=== PATIENT | female | born 1970 | race American Indian/Alaskan Native ===

== ENCOUNTER 2025-05-16 17:12 | Emergency (ER) | payer MEDICAID, SELFPAY ==
--- NOTE | 2025-05-16 17:21 | XR_ITS ---
Examination: CTA carotids with intravenous contrast CTA brain, head with intravenous contrast. 2-D sagittal, coronal reconstructions. 3-D reconstructions. Exam date and time: May 16 2025 cm 2 hours INDICATIONS: Stroke alert, onset left-sided body weakness beginning 1600 hours today, large acute subacute subdural hematoma or peripheral to the left cerebral hemisphere on CT brain scan today CTDI: vol (mGy) 11.2 DLP: (mGycm) 446 Technique: Multiple CTA axial brain, head carotid images post intravenous contrast injection 100 cc, [id number]. 2-D sagittal, coronal reconstructions. 3-D reconstructions, 3-D post processing including vascular maximum intensity projection images. Low dose protocols were performed. One or more of the following dose reduction techniques were used; automated exposure control, adjustment of the mA and/or KV according to patient size, use of iterative reconstruction technique. Findings: No common carotid carotid bifurcation or significant internal carotid artery stenoses Codominant vertebral arteries with no critical stenoses Intracranial vertebral arteries basilar artery and posterior cerebral branches do fill in Juxtasellar supraclinoid portions internal carotid arteries fill, no occlusions of the M1 segments middle cerebral arteries There is decreased filling of the right middle cerebral artery trifurcation vessels, clinical correlation advised Anterior cerebral artery branches do fill Please see the CT brain scan report IMPRESSION: No significant neck arterial stenoses No cerebral large vessel occlusions or thrombus
--- NOTE | 2025-05-16 17:21 | EKG_ITS ---
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
--- NOTE | 2025-05-16 17:22 | EDNOTE_ITS ---
Neuro Symptoms Deficit-RME/HPI General Chief Complaint: Neuro Symptoms/Deficit Stated Complaint: STROKE Time Seen by Provider: 05/16/25 17:20 Arrival date/time: 05/16/25 17:12 Limitations: no limitations RME / HPI RME / HPI Narrative: 55 year old female presents to the ED BIBA from home for evaluation of altered mental status today. Per medics, family on scene reported patient was at her usual state of health today. Noted at 4:00 PM, she was drinking water when she acutely became altered and unresponsive. Per medics on their arrival, patient was GCS of 9 with a respiratory rate of 6. Evidently has history of substance use and was given 2mg Narcan IN and 1mg IV with minimal improvement, repeat GCS 12. However, noted left sided weakness. BS 116. Patient unable to provide any additional history due to acuity and mental status. Related Data Home Medications ?Medication ?Instructions ?Recorded ?Confirmed atropine 1 % eye drops 1 drp ophthalmic (eye) BID 0 03/01/24 03/01/24 moxifloxacin 0.5 % eye drops 1 drp ophthalmic (eye) QI D 03/01/24 03/01/24 prednisolone acetate 1 % eye 1 drp ophthalmic (eye) 6 TIMES 03/01/24 03/01/24 drops,suspension DAILY Previous Rx's ?Medication ?Instructions ?Recorded fluconazole 200 mg tablet 400 mg (2 x 200 mg) PO QDAY #60 03/02/24 tabs Allergies Allergy/AdvReac Type Severity Reaction Status Date / Time No Known Allergies Allergy Verified 05/16/25 18:13 Review of Systems Review of Systems ROS Unobtainable: unobtainable due to mental status ED Exam General Limitations: Present no limitations General appearance: Present other (Expressive aphasia but able to perform commands with right side. ) Head Head exam: Present atraumatic and normocephalic Eye Eye exam: Present PERRL, EOMI and other (Cornea opacified) ENT ENT exam: Present normal exam, normal oropharynx and mucous membranes dry Neck Neck exam: Present normal inspection, full ROM and trachea midline Chest Chest inspection: Present normal inspection and symmetric chest wall rise Respiratory Respiratory exam: Present normal lung sounds bilaterally Cardiovascular Cardiovascular exam: Present regular rate, normal rhythm and normal heart sounds Abdominal Exam Abdominal exam: Present soft and normal bowel sounds Extremities Exam Extremities exam: Present normal inspection Back Exam Back exam: Present normal inspection Neurological Exam Neurological exam: Present other (Expressive aphasia but able to perform commands with right side. Left side upper and lower dense hemiparesis, left facial droop, no drooling. ) Skin Skin exam: Present warm, dry, intact and normal color Course Quality Measures Suspected type of Stroke: Hemmorrhagic Last known well (date): 05/16/25 Last known well (time): 16:00 Tenecteplase given: Reason(s) TPA not given: Symptoms suggest SAH not given stroke Orders Category Date Time Status Bedside Blood Glucose NOW Care 05/16/25 17:21 Completed Carbon Rod Inserter NOW Care 05/16/25 17:21 Completed Continuous Pulse Oximetry NOW Care 05/16/25 17:21 Completed EKG (ED ONLY) *Do not use* NOW Care 05/16/25 17:21 Completed Powers [Urinary Catheter] QS Care 05/16/25 18:16 Completed Insert IV NOW Care 05/16/25 17:21 Completed NIH Stroke Scale now Care 05/16/25 17:21 Completed NPO NOW Care 05/16/25 17:21 Completed Neuro Check Q15MIN Care 05/16/25 17:21 Completed Nurse Swallow Screen x1 Care 05/16/25 17:21 Completed Consult to Neurology / Tele-Neurology Routine Cons 05/16/25 17:21 Active Transfer to another facility [Transfer/Discharge] Stat Discharge 05/16/25 18:[address] angio stroke protocol Stat Exams 05/16/25 17:[address] stroke protocol Stat Exams 05/16/25 17:21 Completed EKG (ED Only) Stat Exams 05/16/25 17:21 Draft Alcohol, Blood Medical Stat Lab 05/16/25 17:30 Completed Arterial Blood Gas Stat Lab 05/16/25 17:52 Completed B-Type Natriuretic Peptide Stat Lab 05/16/25 17:30 Completed CBC Stat Lab 05/16/25 17:30 Completed Comprehensive Metabolic Panel Stat Lab 05/16/25 17:30 Completed Drug Screen,Urine Stat Lab 05/16/25 18:06 Completed Magnesium Stat Lab 05/16/25 17:30 Completed Partial Thromboplastin Time Stat Lab 05/16/25 17:30 Completed Prothrombin Time with INR Stat Lab 05/16/25 17:30 Completed Troponin I Stat Lab 05/16/25 17:30 Completed Urinalysis Stat Lab 05/16/25 18:06 Completed Urine Culture Stat Lab 05/16/25 18:06 Completed Labetalol IV [Trandate IV] Med 05/16/25 17:39 Discontinued 10 mg IVP X1 ONE Mannitol Inj 20% IVPB 250 ml Med 05/16/25 18:30 Discontinued IV X1 Nicardipine/Ns 20Mg Ivpb [Cardene Ivpb] Med 05/16/25 18:44 Discontinued 20 mg in 200 ml IV 5 mg/hr Sodium Chloride 0.9% 1000 ml [Ns] 1,000 ml Med 05/16/25 17:30 Discontinued IV Q10H levETIRAcetam INJ [Keppra Inj] 2,500 mg Med 05/16/25 17:45 Discontinued Sodium Chloride 0.9% [Ns] 100 ml IV X1 Oxygen Delivery NOW RT 05/16/25 17:21 Completed Vital Signs Vital signs: Vital Signs Pulse Rate 86 05/16/25 17:46 Respiratory Rate 16 05/16/25 17:46 Neuro Symptoms / Deficit MDM Narrative MDM Narrative:: Iman Matute am scribing for and in the presence of Dr. Posey. Patient data External records reviewed:: EMS form Clinical information provided by:: EMS Social determinants that could affect healthcare access:: substance use Patient has the following chronic illnesses:: Substance use, blindness, no other medical hx reported How is presenting disease/condition affected by chronic disease/condition?: exacerbated by Evaluation data The following diagnostics were reviewed and interpreted by me:: lab results, radiology exam(s) and EKG tracing(s) (05/16/2025 @ 17:54. NSR, rate 88, no STEMI. ) Lab and/or radiology exams considered but not ordered:: None Interpretation Summary: Ordering Physician: Antonio Posey MD Date of Service: 05/16/25 Procedure(s): CT stroke protocol Accession Number(s): [id number] cc: Antonio Posey MD; Endy Castanon MD~ Examination: CT brain head without contrast. 2-D sagittal coronal reconstructions Date and time of exam:May 16, 2025 1724 hours INDICATIONS: Stroke alert, onset left-sided body deficit beginning at 1600 hours today CTDI: vol (mGy):45.3 DLP: (mGycm):884 Technique: Multiple CT axial sections of the brain have been obtained, 5 mm slice thickness. Contrast has not been administered. 2-D sagittal, coronal reconstructions have been obtained Low dose protocols were performed. One or more of the following dose reduction techniques were used; automated exposure control, adjustment of the mA and/or KV according to patient size, use of iterative reconstruction technique. Findings: Large acute subacute subdural hematoma peripheral to the left cerebral hemisphere Significant effacement of left cortical sulcal markings and shift of the frontal horns to the right at least 10 mm This subdural at the level of the frontal horns measures up to 13 mm in thickness The left lateral ventricle is severely compressed The cranial vault is intact The fourth ventricle is midline Cerebellar tonsils do not show herniation IMPRESSION: Large acute subacute subdural hematoma peripheral to the left cerebral hemisphere measuring up to 13 mm in thickness at the level of frontal horns Significant mass effect, shift of the frontal horns to the right at least 10 mm with mass effect upon the cerebral falx Dictated By: Endy Castanon MD Signed By: <Electronically signed by Endy Castanon MD in OV> 05/16/25 6658 Medications / Prescriptions Medications or Prescriptions considered but not ordered:: None Medication administrations:: Medication Administration History Discontinued Medications Sodium Chloride (Ns) 1,000 mls @ 100 mls/hr IV Q10H MIRTA Stop: 06/15/25 17:29 Last Admin: 05/16/25 18:13 Dose: 100 mls/hr Documented By: KORIN Levetiracetam 2,500 mg/ Sodium (Chloride) 125 mls @ 250 mls/hr IV X1 ONE Stop: 05/16/25 18:14 Last Infusion: 05/16/25 18:58 Dose: Infused Documented By: Admin: 05/16/25 18:13 Dose: 250 mls/hr Documented By: KORIN Mannitol (Mannitol Inj 20% Ivpb) 250 mls @ 500 mls/hr IV X1 ONE Stop: 05/16/25 18:59 Last Admin: 05/16/25 18:52 Dose: 500 mls/hr Documented By: KORIN Nicardipine/Sodium Chloride (Cardene Ivpb) 20 mg in 200 mls @ 50 mls/hr IV .Q4H PRN; Protocol PRN Reason: Per Protocol Stop: 06/15/25 18:43 Labetalol HCl (Labetalol Inj 5 Mg/Ml Vial 20 Ml) 10 mg IVP X1 ONE Stop: 05/16/25 17:40 Last Admin: 05/16/25 18:12 Dose: 10 mg Documented By: KORIN See above Consultations Consultation(s) initiated? (list below): Yes Consultation #1 (Physician, Specialty, Details): I spoke with teleneurologist who has reviewed head CT. Reports patient has a large subdural hematoma. Consultation #2 (Physician, Specialty, Details): I spoke with transfer nurse, neurosurgeon Dr. Lewis and ER provider Dr. rCaig at [facility] in [place]. Neurosurgeon recommends 50g Mannitol, Keppra, keep patient NPO, elevate the head of bed, and reverse any prolonged bleeding. Will start patient in Nicardipine drip to keep her SBP <140. Time: 17:42 Diagnosis Neuro Differential Diagnosis: subarachnoid hemorrhage, cerebrovascular accident and transient cerebral ischemia Most likely diagnosis given after review of the tests above:: Left hemiparesis Large acute subdural hematoma Admission Indicated Admission indicated?: not indicated Explain why admission is indicated or not indicated:: Txfer for neurosurgery Admission Request Was there a request for admission?: No Disposition Plan Disposition Plan: Transfer Critical Care Time Critical Care Time Critical Care Time: Yes Total Critical Care Time (min.): 35 Attestation: The high probability of sudden, clinically significant deterioration in the patient's condition required the highest level of my preparedness to intervene urgently. The services I provided to this patient were to treat and/or prevent clinically significant deterioration. Services included the following: chart data review, reviewing nursing notes and/or old charts, documentation time, workday financials consultant collaboration regarding findings and treatment options, medication orders and management, direct patient care, vital sign assessments and ordering, interpreting and reviewing diagnostic studies and lab tests. Aggregate critical care time includes only time during which I was engaged in work directly related to the patient's care, as described above, whether at bedside or elsewhere in the Emergency Department. It did not include time spent performing other reported procedures or the services of residents, students, nurses or physician assistants. Discharge Plan Plan Patient Disposition: [facility] [place] Facility Pt Being Transferred to: [facility] Service Needed for Transfer: Neurosurgery Patient condition on transfer: Stable Prescriptions/Referrals Prescriptions/Med Rec: No Action prednisolone acetate 1 % drops,suspension 1 drp OPHTHALMIC (EYE) 6 TIMES DAILY Patient Comments: INSTILL 1 DROP INTO LEFT EYE SIX TIMES DAILY atropine 1 % drops 1 drp ophthalmic (eye) BID moxifloxacin 0.5 % drops 1 drp ophthalmic (eye) QID Patient Comments: INSTILL 1 DROP INTO LEFT EYE 4 TIMES DAILY Rx Instructions: LEFT EYE fluconazole 200 mg tablet 400 mg PO QDAY Qty: 60 0RF Problem List Clinical Impression: Acute left hemiparesis, Acute subdural hematoma Patient/Caregiver Discharge Instructions Print Language: Ivorian Stand Alone Forms: [facility] Info., Patient Portal Info Letter
[2025-05-16 17:46] VITALS: PULSE 86; RESP 16; RESP 96
[2025-05-16 17:48] LABS: Basophils # (Auto) 0.1 Thou/mm3 (0.0-0.2); Basophils % (Auto) 0 % (0-2.5); Eosinophils # (Auto) 0.2 Thou/mm3 (0.0-0.5); Eosinophils % (Auto) 1 % (0-10); Hematocrit 40.7 % (36.0-46.0); Hemoglobin 14.1 g/dL (12.0-16.0); Immature Granulocytes Auto 0.06 Thou/mm3 (0.00-0.00); Lymphocytes # (Auto) 4.0 Thou/mm3 (1.0-4.8); Lymphocytes % (Auto) 28 % (10-50); Mean Corpuscular HGB Conc 34.6 g/dl (31.0-37.0); Mean Corpuscular Hemoglobin 30.1 pg (25.0-35.0); Mean Corpuscular Volume 87 fL (80-100); Monocytes # (Auto) 1.0 Thou/mm3 (0.0-0.8); Monocytes % (Auto) 7 % (0-12); Neutrophils # (Auto) 9.3 Thou/mm3 (1.8-7.7); Neutrophils % (Auto) 64 % (37-80); Nucleated Red Blood Cell # 0.00 Thou/mm3 (0.00-0.00); Nucleated Red Blood Cell % 0 /100 WBC (0); Platelet Count 351 Thou/mm3 (140-440); RDW Standard Deviation 44.0 fL (36.4-46.3); Red Blood Count 4.68 Miln/mm3 (4.00-5.20); White Blood Count 14.7 Thou/mm3 (3.6-11.0)
[2025-05-16 17:55] LABS: INR 1.1 (0.9-1.3); Partial Thromboplastin Time 29.0 Seconds (22.0-36.0); Prothrombin Time 12.0 Seconds (9.0-12.2)
[2025-05-16 17:56] VITALS: PULSE 84; RESP 18; O2SAT 100
[2025-05-16 17:56] LABS: Base Excess -2 (-3-3); HCO3 22 mEq/L (20-26); Inspired Oxygen, FIO2 21 %; O2 Saturation 97 % (91-98); PCO2 33 mmHg (32.0-48.0); PO2 83 mmHg (83-108); pH, Arterial 7.42 (7.35-7.45)
[2025-05-16 17:57] LABS: B-Type Natriuretic Peptide 91 pg/mL (0-100)
[2025-05-16 17:57] LABS: Allen Test Performed/OK; Puncture Site Right Radial
--- NOTE | 2025-05-16 17:59 | ESCONSULT_ITS ---
Tele Neuro Consultation Consultation Date 05/16/25 Most Recent Vital Signs Last Vital Signs Pulse 86 05/16/25 17:46 Resp 16 05/16/25 17:46 Laboratory-Coagulation Panel PT 12.0 Seconds (9.0-12.2) 05/16/25 17:30 INR 1.1 (0.9-1.3) 05/16/25 17:30 APTT 29.0 Seconds (22.0-36.0) 05/16/25 17:30 Consultation Narrative [facility] Tele[facility]urology Consult Services Patient Name:???Janice May Date of :???1970 Identification Number:??? Date of Service:???05/16/2025 17:08:10 Diagnosis:?I62.01 - Non-traumatic acute SDH Impression: 55YOF with a PMHx of HTN, bilateral complete blindness, and previous history of drug abuse (including opiates and methamphetamine), presenting after being found with dense L hemiplegia and L gaze version, concerning for a provoked seizure in the setting of an acute subdural hemorrhage. No clear report of trauma; however, contralateral hypodensity concerning for a coup-countercoup injury, which may have been the result of her hemorrhage. Moving forward, recommend prompt blood pressure normalization with STAT neurosurgical consultation and admission to the ICU for close q1hr monitoring (would need transfer for immediate neurosurgical evaluation). Recommendation: Diagnostic Studies: ?Repeat CT head in first 8-12hrs ?CTA head and neck with contrast Laboratory Studies:? INR/PT ? aPTT? CBC Medications:? Hold antiplatelet therapy/NSAIDS/Anticoagulation Nursing Recommendations: ? Telemetry, IV Fluids?Avoid dextrose containing fluids, Maintain euglycemia ? Head of bed 30 degrees ? Neuro checks q1-2?hrs?during ICU stay ? Once stable neuro checks q4?hrs ? keep BP less than 140/90's with goal of 130/80s Consultations: ? Need Neurosurgery consultation?STAT ? Recommend Speech therapy if failed dysphagia screen ? Physical therapy/Occupational therapy DVT Prophylaxis: ? SCDs Disposition: ? Neurology will Follow Additional Recommendation: Load with Keppra 2500mg now, ten start empiric 750mg twice daily Metrics: Last Known Well: 05/16/2025 16:00:00 Dispatch Time: 05/16/2025 17:08:10 Arrival Time: 05/16/2025 17:12:00 Initial Response Time: 05/16/2025 17:13:42Symptoms: Sudden onset L sided weakness, L gaze deviation, unresponsiveness, altered mental status. Initial patient interaction: 05/16/2025 17:16:38 NIHSS Assessment Completed: 05/16/2025 17:22:44Patient is not a candidate for Thrombolytic. Thrombolytic Medical Decision: 05/16/2025 17:22:41Patient was not deemed candidate for Thrombolytic because of following reasons: Current intracranial hemorrhage . CT Head: I personally reviewed all the CT images that were available to me and it showed: a left subdural hematoma measuring up to 13mm with complete effacement of the left lateral ventricle with a notable R frontal hypodensity concerning for a traumatic head injury. No tonsillar herniation noted. Primary Provider Notified of Diagnostic Impression and Management Plan on: 05/16/2025 17:46:37 History of Present Illness:Patient is a 55 year old Female. Patient was brought by EMS for symptoms of Sudden onset L sided weakness, L gaze deviation, unresponsiveness, altered mental status. 55YOF with a PMHx of HTN, bilateral complete blindness, and previous history of drug abuse (including opiates and methamphetamine), presenting to the [place] ED in the setting of sudden onset L sided weakness with sudden loss of speech and a L gaze deviation. Per EMS, timeline unclear; however, patient was found amid a crowd of individuals, with reported last known well at 1600. AT 1630, EMS was called due to patient becoming nonverbal, with forced L gaze as well as dense L sided weakness. Patient received Narcan with slight improvement in mentation, per EMS. No reported trauma; however, patient with dry blood around nostrils. Per chart, no previous history of strokes or seizures. Past Medical History: ?Hypertension ?There is no history of Stroke ?There is no history of Seizures Medications: No Anticoagulant use? No Antiplatelet use Reviewed EMR for current medications Allergies:? Reviewed Social History: Drug Use: Yes Family History: There is no family history of premature cerebrovascular disease pertinent to this consultation ROS : 14 Points Review of Systems was performed and was negative except mentioned in HPI. Past Surgical History: There Is No Surgical History Contributory To Today?s Visit Examination: BP(164/116),?Pulse(86), 1A: Level of Consciousness - Requires repeated stimulation to arouse?+ 2 1B: Ask Month and Age - Aphasic?+ 2 1C: Blink Eyes & Squeeze Hands - Performs 1 Task?+ 1 2: Test Horizontal Extraocular Movements - Normal?+ 0 3: Test Visual Armstrong - Patient is Bilaterally Blind?+ 3 4: Test Facial Palsy (Use Grimace if Obtunded) - Minor paralysis (flat nasolabial fold, smile asymmetry)?+ 1 5A: Test Left Arm Motor Drift - No Movement?+ 4 5B: Test Right Arm Motor Drift - Drift, but doesn't hit bed?+ 1 6A: Test Left Leg Motor Drift - No Effort Against [place]?+ 3 6B: Test Right Leg Motor Drift - Some Effort Against [place]?+ 2 7: Test Limb Ataxia (FNF/Heel-Stanley) - No Ataxia?+ 0 8: Test Sensation - Normal; No sensory loss?+ 0 9: Test Language/Aphasia - Coma/Unresponsive?+ 3 10: Test Dysarthria - Mute/Anarthric?+ 2 11: Test Extinction/Inattention - No abnormality?+ 0 NIHSS Score:?24 Pre-Morbid Modified Harrington Scale:2 Points = Slight disability; unable to carry out all previous activities, but able to look after own affairs without assistance This consult was conducted in real time using interactive audio and video technology. Patient was informed of the technology being used for this visit and agreed to proceed. Patient located in hospital and provider located at home/office setting. Due to the immediate potential for life-threatening deterioration due to underlying acute neurologic illness, I spent 25 minutes providing critical care. This time includes time for face to face visit via telemedicine, review of medical records, imaging studies and discussion of findings with providers, the patient and/or family. Dr Darrel Gonzales [facility] For Inpatient follow-up with [facility] physician please call [facility] at . As we are not an outpatient service for any post hospital discharge needs please contact the hospital for assistance. If you have any questions for the [facility] physicians or need to reconsult for clinical or diagnostic changes please contact us via [facility] at [phone]- [phone].
[2025-05-16 18:03] VITALS: BMI 24.0
[2025-05-16 18:06] LABS: Alanine Aminotransferase 14 U/L (10-49); Albumin, Serum 4.8 gm/dL (3.5-5.0); Albumin/Globulin Ratio 1.5 (1.2-2.2); Alcohol, Blood Medical < 10.0 mg/dL (0-10.0); Alkaline Phosphatase 189 U/L (46-116); Anion Gap 13 (7-16); Aspartate Amino Transferase 23 U/L (0-34); BUN/Creatinine Ratio 13 Ratio (12-20); Bilirubin,Total 1.7 mg/dL (0.3-1.2); Blood Urea Nitrogen 14 mg/dL (9-23); Calcium 9.5 mg/dL (8.3-10.6); Calcium (Corrected) 9.5 mg/dL (8.5-10.1); Carbon Dioxide 22.4 mMol/L (20.0-31.0); Chloride 111 mMol/L (98-107); Creatinine (Component) 1.1 mg/dL (0.6-1.3); Estimated Creatinine Clearance 50.8 mL/min (>60); Globulin 3.3 gm/dL (2.3-3.5); Glucose 108 mg/dL (74-106); Magnesium 2.1 mg/dL (1.6-2.6); Osmolality,Calculated 292 (275-295); Potassium 4.0 mMol/L (3.4-5.1); Sodium 146 mMol/L (136-145); Total Protein 8.1 gm/dL (5.7-8.2); Troponin I 0.021 ng/mL (0.0-0.045); eGFR 59 See Note
[2025-05-16 18:12] VITALS: BP 162/120; PULSE 78
[2025-05-16] MEDS: LABETALOL INJ 5 MG/ML VIAL 20 ML 10 MG IVP (18:12)
[2025-05-16] MEDS: LEVETIRACETAM IV (18:13)
[2025-05-16] MEDS: SODIUM CHLORIDE 0.9% IV (18:13)
[2025-05-16] MEDS: SODIUM CHLORIDE 0.9% 1000 ML 1,000 ML 100 ML IV (18:13)
[2025-05-16 18:16] VITALS: PULSE 78
[2025-05-16 18:31] LABS: Collection Type, Urine Catheter
[2025-05-16 18:42] VITALS: TEMP 37.3; O2SAT 96
[2025-05-16 18:45] VITALS: BP 132/91; PULSE 61; RESP 19; O2SAT 95
--- NOTE | 2025-05-16 18:45 | PC.CC ---
182: transfer packets handed to REACH Crew. RN Patience will complete pink Physician transfer certification form and provide copies to Reach crew. 181: transfer Packets taken to ED. 180: Called Patience in ED, informed her of milk pickup driver time. Also informed her that pt needs to be registered - no facesheets avail. 180: Zafar lundberg/ [facility] called back with an ETA of 1831. Anson lundberg/ carrie created CD X1. 2 transfer packet created. CD placed in hospital packet. 175: Called [facility] to initiate transport. will call me back with ETA 175: Pt accepted by Dr. Minal Craig, Dr. Lewis Neuro consulted. 1535: Call [facility], spoke to Christian, transfer initiated. Peer to peer initiated. While on hold, clinical and image sent. 1535: received call from ED requesting stat transfer for stroke lg subdural hematoma.
[2025-05-16] MEDS: Mannitol Inj 20% IVPB 250 ML 500 ML IV (18:52)
[2025-05-16 18:55] LABS: Bacteria,Urine 2+; Bilirubin,Urine Negative (Negative); Blood,Urine Negative (Negative); Clarity,Urine Clear (Clear/Hazy); Color,Urine Yellow (Lt Yel-Yel); Glucose, Urine Negative (Negative); Ketones,Urine 1+ (Negative); Leukocyte Esterase,Urine Positive (Negative); Nitrite,Urine Positive (Negative); PH,Urine 6.5 (5.0-7.0); Protein,Urine Trace (Neg - Trace); RBC,Urine 8 /hpf (0-3); Squamous Epithelial Cell,Urine 1 /hpf (0-5); Urobilinogen,Urine 6.0 mg/dL (0.0-1.0); WBC,Urine 96 /hpf (0-5)
--- NOTE | 2025-05-16 19:00 | PC.NURSE ---
[facility] AT BEDSIDE, [phone].
--- NOTE | 2025-05-16 19:00 | PC.NURSE ---
REPORT GIVEN TO WILNER CAMEJO AT [facility], REACH NURSE AT BEDSIDE AND REPORT GIVEN.
[2025-05-16 19:02] LABS: Specific Gravity,Urine 1.015 (1.001-1.035)
--- NOTE | 2025-05-16 19:09 | PC.CC ---
182: transfer packets handed to REACH Crew. RN Patience will complete pink Physician transfer certification form and provide copies to Reach crew. 181: transfer Packets taken to ED. 180: Called Patience in ED, informed her of pick out hand time. Also informed her that pt needs to be registered - no facesheets avail. 180: Zafar lundberg/ [facility] called back with an ETA of 1831. Anson lundberg/ carrie created CD X1. 2 transfer packet created. CD placed in hospital packet. 175: Called [facility] to initiate transport. will call me back with ETA 175: Pt accepted by Dr. Minal Craig, Dr. Lewis Neuro consulted. 1735: Call [facility], spoke to Christian, transfer initiated. Peer to peer initiated. While on hold, clinical and image sent. 1735: received call from ED requesting stat transfer for stroke lg subdural hematoma.
[2025-05-16 19:33] LABS: Amphetamine/Methamp Scrn,U Positive (Negative); Barbiturate Screen,Urine Negative (Negative); Benzodiazepines Screen,Urine Negative (Negative); Benzoylecgonine Screen, Ur Negative (Negative); Fentanyl Screen,Urine Negative (Negative); Opiate Screen,Urine Negative (Negative); THC Screen,Urine Negative (Negative)
== END 2025-05-16 19:03 | disposition short-term general hospital (02) ==
LOC: SERX 18:13
PROVIDERS: Emergency Provider Family Medicine
DX: I69.254 Hemiplegia and hemiparesis following other nontraumatic intracranial hemorrhage affecting left non-dominant side (principal); R22.0 Localized swelling, mass and lump, head; H54.7 Unspecified visual loss; R40.2422 Glasgow coma scale score 9-12, at arrival to emergency department; I10 Essential (primary) hypertension; Z75.1 Person awaiting admission to adequate facility elsewhere
CPT/HCPCS: 51702; 36415; 36600; 70450; 70496; 70498; 80053; 80307; 80320; 81001; 82803; 83735; 83880; 84484; 85025; 85610; 85730; 87077; 87086; 87186; 93005; 96365; 96372; 96375; 99284; A4314; A4649; J1953; J3490; J7030; J7050; Q9967; G0480; J1920